=== PATIENT | female | born 1980 | race Caucasian/White ===

== ENCOUNTER 2017-05-24 13:03 | Emergency (ER) | payer MEDICAID ==
[~2017-05-24] VITALS: Ht 172.7 cm; Wt 56.8 kg
[2017-05-24 13:06] VITALS: BP 107/69; PULSE 81; TEMP 97.9
[2017-05-24] MEDS ORDERED: NORCO 325 MG-51 TAB PO (13:36)
== END 2017-05-24 13:48 | disposition home or self-care (01) ==
LOC: COL.ER 13:03
DX: R10.9 Unspecified abdominal pain (principal); F17.210 Nicotine dependence, cigarettes, uncomplicated

== ENCOUNTER → 2018-02-04 | Outpatient (REF) ==
[~2018-02-04] MED LIST: NORCO 325 MG-51 TAB PO
== END ==
LOC: ZLAB.WCH 18:05
DX: Z01.89 Encounter for other specified special examinations (principal)